=== PATIENT | male | born 1960 | race Caucasian/White ===

== ENCOUNTER 2021-04-11 11:26 | Emergency (ER) | payer OTHER ==
--- NOTE | 2021-04-11 12:20 | EDM.PDOC ---
ED HPI GENERAL MEDICAL PROBLEM - General Stated Complaint: COVID SYMPTOMS Time Seen by Provider: 04/11/21 12:15 Source of Information: Reports: Patient History Limitations: Reports: No Limitations - History of Present Illness INITIAL COMMENTS - FREE TEXT/NARRATIVE: 60 year old male presents to ED for covid test. He has no symptoms, but feels an upset stomach. 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 ED ROS GENERAL - Review of Systems Review Of Systems: Comprehensive ROS is negative, except as noted in HPI. ED EXAM, GENERAL - Physical Exam Exam: Not Obtained Course - Orders/Labs/Meds Labs: Laboratory Tests 04/11/21 Range/Units 11:35 SARS CoV-2 RNA Rapid JEET Negative Departure - Departure Time of Disposition: 12:19 Disposition: Against Medical Advice 07 Clinical Impression: COVID-19 ruled out - Discharge Information *PRESCRIPTION DRUG MONITORING PROGRAM REVIEWED*: Not Applicable *COPY OF PRESCRIPTION DRUG MONITORING REPORT IN PATIENT PAULA: Not Applicable Referrals: PCP,None [Primary Care Provider] - Additional Instructions: Return to ED if any increased or new concerning symptoms. - Assessment/Plan Plan: Patient aware of negative covid test, refusing further exam and treatment. Signed AMA forms.
== END 2021-04-11 12:20 | disposition left against medical advice (07) ==
LOC: LB.ED 11:26
DX: Z20.822 Contact with and (suspected) exposure to COVID-19 (principal)
CPT/HCPCS: 99281; U0002